=== PATIENT | female | born 1970 | race Caucasian/White ===

== ENCOUNTER 2021-01-17 07:35 | Emergency (ER) | payer SELFPAY ==
[~2021-01-17] VITALS: Ht 149.9 cm; Wt 112.0 kg
[2021-01-17] MEDS ORDERED: LIDOCAINE VISCOUS 2% UD 15 ML UDC ONE (07:51)
[2021-01-17] MEDS ORDERED: PANTOPRAZOLE 40 MG VIAL ONE (07:51)
[2021-01-17] MEDS ORDERED: MAG HYDROX/AL HYDROX/SIMETH 30 ML UDC ONE (07:52)
[2021-01-17] MEDS ORDERED: ONDANSETRON HCL/PF 4 MG/2 ML VIAL ONE (07:52)
[2021-01-17] MEDS ORDERED: MORPHINE SULFATE INJ 4 MG/ML DISP.SYRIN ONE (07:52)
[2021-01-17] MEDS ORDERED: PANTOPRAZOLE 40 MG VIAL IV ONE (08:00)
[2021-01-17] MEDS ORDERED: LIDOCAINE VISCOUS 2% UD 15 ML UDC MM ONE (08:00)
[2021-01-17] MEDS ORDERED: MORPHINE SULFATE INJ 2 MG/ML DISP.SYRIN IV ONE (08:00)
[2021-01-17] MEDS ORDERED: IV NS 0.9% 1,000 ML BAG IV ONE (08:00)
[2021-01-17] MEDS ORDERED: MAG HYDROX/AL HYDROX/SIMETH 30 ML UDC PO ONE (08:00)
[2021-01-17] MEDS ORDERED: ONDANSETRON HCL/PF 4 MG/2 ML VIAL IVP ONE (08:00)
--- NOTE | 2021-01-17 08:06 | NUR ---
urine obtained via straight catheter using sterile technique.
[2021-01-17 08:09] LABS: BASOPHILS % (AUTO) 0.8 % (0.0-2.0); EOSINOPHILS % (AUTO) 3.1 % (0.0-6.0); HEMATOCRIT 32 % (33-45); HEMOGLOBIN 10.1 g/dL (11.5-14.8); LYMPHOCYTES # (AUTO) 1.6 /CMM (0.8-4.8); LYMPHOCYTES % (AUTO) 31.5 % (20.0-44.0); MEAN CORPUSCULAR HGB CONC 31 g/dl (31.0-36.0); MEAN CORPUSCULAR VOLUME 68 fL (82-100); MONOCYTES # (AUTO) 0.5 /CMM (0.1-1.30); MONOCYTES % (AUTO) 9.8 % (2.0-12.0); NEUTROPHILS # (AUTO) 2.7 /CMM (1.8-8.9); NEUTROPHILS % (AUTO) 54.8 % (43.0-81.0); PLATELET COUNT (AUTO) 415 /CMM (150-450); RED BLOOD CELL COUNT(AUTO) 4.71 MIL/uL (4.0-5.2); WHITE BLOOD COUNT (AUTO) 4.9 K/uL (4.3-11.0)
[2021-01-17 08:15] LABS: BILIRUBIN,URINE NEGATIVE (NEGATIVE); COLOR,URINE YELLOW (YELLOW); LEUKOCYTE ESTERASE ,URINE TRACE (NEGATIVE); NITRITE, URINE NEGATIVE (NEGATIVE); PROTEIN,URINE TRACE mg/dl (NEGATIVE); UGLUCOSE NEGATIVE (NEGATIVE); UROBILINOGEN,URINE 0.2 EU/dL (0.2)
--- NOTE | 2021-01-17 08:18 | NUR ---
[id number], from [facility], c/o abd pain x 10 days, +N/V per PT she had Sx 01/08/21 "abd ablation", noticed bright red blood in poop. PT AAOX4, VSS. RR EVEN & UNLABORED. PT SEEN & EVAL'D BY DR. ROYAL. MEDICATED ORDERED, PT CASSY WELL. WILL CONT TO MONITOR. GLASS ENAMEL MIXER AT FOR EVAL.
[2021-01-17 08:26] LABS: CALCIUM, SERUM 9.5 mg/dL (8.5-10.1); CREATININE 0.6 mg/dL (0.6-1.3)
[2021-01-17 08:32] LABS: ALBUMIN 3.4 g/dL (3.4-5.0); BILIRUBIN,DIRECT 0.1 mg/dL (0.0-0.2); BILIRUBIN,TOTAL 0.4 mg/dL (0.2-1.0); TOTAL PROTEIN, SERUM 7.7 g/dL (6.4-8.2)
[2021-01-17] MEDS ORDERED: IV NS 0.9% 250 ML IV ONE (08:40)
[2021-01-17] MEDS ORDERED: IOHEXOL-300 100 ML VIAL IV ONE (08:40)
[2021-01-17 08:47] LABS: BACTERIA,URINE None seen /HPF (None Seen); SQUAMOUS EPITHELIAL CELL,UR Few /HPF (None Seen)
--- NOTE | 2021-01-17 08:47 | NUR ---
RECTAL EXAM DONE BY DR. ROYAL, CHAPERONED BY FEMALE NURSE. STOOL SAMPLE SENT FOR OCCULT.
[2021-01-17 08:58] LABS: OCCULT BLOOD STOOL NEGATIVE (NEGATIVE)
--- NOTE | 2021-01-17 09:04 | NUR ---
PT TO CT VIA [facility]
[2021-01-17] MEDS ORDERED: HYDR25SU33 RC (09:53)
[2021-01-17] MEDS ORDERED: HYDR-4209 PO (09:53)
--- NOTE | 2021-01-17 10:10 | NUR ---
PATIENT DENIES BEING HOMELESS, REFUSED TO SIGN HOMELESS WAIVER, SHE STS SHE HAS A PERMANENT NURSING HOME.
--- NOTE | 2021-01-17 10:16 | NUR ---
Patient discharged to home in stable condition. Written and verbal after care instructions given. Patient verbalizes understanding of instruction.
--- NOTE | 2021-01-17 10:17 | NUR ---
IV removed. Catheter intact and site benign. Pressure and 4x4 applied to site. No bleeding noted. Patient given written and verbal discharge instructions. Patient verbalizes understanding of instructions. Patient is ambulatory with steady gait. Refuses offer of prison placement. Patient given list of available shelters in surrounding area.
[2021-01-17 10:21] VITALS: BP 126/78
== END 2021-01-17 10:21 | disposition home or self-care (01) ==
LOC: ER 07:37
DX: D25.1 Intramural leiomyoma of uterus (principal); N93.9 Abnormal uterine and vaginal bleeding, unspecified; R10.30 Lower abdominal pain, unspecified; D50.9 Iron deficiency anemia, unspecified; K64.4 Residual hemorrhoidal skin tags; K57.30 Diverticulosis of large intestine without perforation or abscess without bleeding; R00.0 Tachycardia, unspecified; I10 Essential (primary) hypertension; E66.01 Morbid (severe) obesity due to excess calories; Z68.42 Body mass index [BMI] 45.0-49.9, adult; Z88.6 Allergy status to analgesic agent
CPT/HCPCS: 36415; 74177; 76856; 80048; 80076; 80307; 80320; 81001; 82272; 83690; 84703; 85025; 85730; 93005; 96361; 96374; 96375; 99285; C9113; J2270; J2405; J7030; J7050; Q9967; G0480

== ENCOUNTER 2021-05-26 01:21 | Emergency (ER) | payer OTHER ==
[~2021-05-26] VITALS: Ht 149.9 cm; Wt 96.6 kg
[~2021-05-26 01:21] MED LIST: HYDR-4209 PO; HYDR25SU33 RC
--- NOTE | 2021-05-26 01:23 | NUR ---
PT AAOX4. PT [id number] C/O ABD PAIN, BLOODY URINE, AND YELLOW VAGINAL DISCHARGE FOR THE PAST 4 MONTHS. PT PALCED IN BED 12 ON MONITOR AND PULSE OX. AWAITING ER MD FOR EVAL AND ORDERS.
[2021-05-26] MEDS ORDERED: HYDROMORPHONE INJ 2 MG/ML DISP.SYRIN IV ONE (02:00)
[2021-05-26] MEDS ORDERED: ONDANSETRON HCL/PF 4 MG/2 ML VIAL IVP ONE (02:00)
[2021-05-26 02:04] LABS: BILIRUBIN,URINE Negative (NEGATIVE); COLOR,URINE YELLOW (YELLOW); LEUKOCYTE ESTERASE ,URINE Negative (NEGATIVE); NITRITE, URINE Negative (NEGATIVE); PROTEIN,URINE Negative (NEGATIVE); UGLUCOSE Negative (NEGATIVE); UROBILINOGEN,URINE 0.2 EU/dL (0.2)
[2021-05-26] MEDS ORDERED: ONDANSETRON HCL/PF 4 MG/2 ML VIAL ONE (02:11)
[2021-05-26] MEDS ORDERED: HYDROMORPHONE 1 MG/1 ML DISP.SYRIN ONE (02:11)
--- NOTE | 2021-05-26 02:18 | NUR ---
BROUGHT TO CT
[2021-05-26 02:22] LABS: CALCIUM, SERUM 9.1 mg/dL (8.5-10.1); CARBON DIOXIDE 24 mmol/L (21-32); CHLORIDE 104 mmol/L (98-107); CREATININE 0.8 mg/dL (0.6-1.3); GLUCOSE 120 mg/dL (74-106); SODIUM SERUM 138 mmol/L (136-145); UREA NITROGEN, BLOOD 13 mg/dL (7-18)
--- NOTE | 2021-05-26 02:25 | NUR ---
BROUGHT BACK FROM CT
[2021-05-26 02:28] LABS: ALANINE AMINOTRANSFERASE 33 U/L (12-78); ALBUMIN 3.3 g/dL (3.4-5.0); ALKALINE PHOSPHATASE 88 U/L (46-116); ASPARTATE AMINOTRANSFERASE 16 U/L (15-37); BILIRUBIN,DIRECT 0.1 mg/dL (0.0-0.2); BILIRUBIN,TOTAL 0.3 mg/dL (0.2-1.0); LIPASE 117 U/L (73-393); TOTAL PROTEIN, SERUM 7.4 g/dL (6.4-8.2)
[2021-05-26 02:30] LABS: BASOPHILS % (AUTO) 0.9 % (0.0-2.0); HEMATOCRIT 30 % (33-45); HEMOGLOBIN 9.2 g/dL (11.5-14.8); LYMPHOCYTES # (AUTO) 1.8 K/uL (0.8-4.8); LYMPHOCYTES % (AUTO) 34.8 % (20.0-44.0); MEAN CORPUSCULAR HGB CONC 31 g/dl (31.0-36.0); MEAN CORPUSCULAR VOLUME 65 fL (82-100); MONOCYTES # (AUTO) 0.5 K/uL (0.1-1.30); MONOCYTES % (AUTO) 10.4 % (2.0-12.0); NEUTROPHILS # (AUTO) 2.7 K/uL (1.8-8.9); NEUTROPHILS % (AUTO) 51.9 % (43.0-81.0); PLATELET COUNT (AUTO) 384 K/uL (150-450); RED BLOOD CELL COUNT(AUTO) 4.56 MIL/uL (4.0-5.2); WHITE BLOOD COUNT (AUTO) 5.1 K/uL (4.3-11.0)
[2021-05-26 03:03] LABS: BACTERIA,URINE None seen /HPF (None Seen); RBC,URINE 0-2 /HPF (0-2); WBC,URINE 0-2 /HPF (0-3)
[2021-05-26 03:04] LABS: SQUAMOUS EPITHELIAL CELL,UR Moderate /HPF (None Seen)
[2021-05-26 03:28] LABS: EOSINOPHILS % (MANUAL) 2 % (0-4); LYMPHOCYTES % (MANUAL) 42 % (16-48); MONOCYTES % (MANUAL) 5 % (0-11.0); NEUTROPHILS % (MANUAL) 51 (42-76)
--- NOTE | 2021-05-26 05:15 | NUR ---
APPAREL CUTTER AT BEDSIDE FOR SECOND TROP DRAW.
[2021-05-26] MEDS ORDERED: NIFE-35 PO (05:50)
[2021-05-26 06:03] VITALS: BP 177/98
--- NOTE | 2021-05-26 06:04 | NUR ---
IV removed. Catheter intact and site benign. Pressure and 4x4 applied to site. No bleeding noted.
--- NOTE | 2021-05-26 06:13 | NUR ---
Patient discharged to home in stable condition. Written and verbal after care instructions given. Patient verbalizes understanding of instruction. Pt ambulated out of ED. VSS.
== END 2021-05-26 06:34 | disposition home or self-care (01) ==
LOC: ER 01:22
DX: R10.9 Unspecified abdominal pain (principal); R00.2 Palpitations; R06.00 Dyspnea, unspecified; K64.9 Unspecified hemorrhoids; I10 Essential (primary) hypertension; Z88.6 Allergy status to analgesic agent; Z79.899 Other long term (current) drug therapy
CPT/HCPCS: 36415; 71045; 74176; 80048; 80076; 81001; 83690; 84484 ×2; 84703; 85007; 85025; 85730; 93005; 96374; 96375; 99285; J1170; J2405

== ENCOUNTER 2021-06-20 18:27 | Emergency (ER) | payer OTHER ==
[~2021-06-20] VITALS: Ht 149.9 cm; Wt 99.8 kg
[~2021-06-20 18:27] MED LIST changes: +NIFE-35 PO
--- NOTE | 2021-06-20 18:45 | NUR ---
Patient bibs lower abdominal pain of 10/10, dyuria "hematuria" on and off x 4 months. no sob noted, no s/o any acute distress. able to to make needs known. Breathing even and unlabored. Stable on RA. Kept Comfortable. will continue with plan of care
--- NOTE | 2021-06-20 18:53 | NUR ---
urine collected and send to lab
[2021-06-20] MEDS ORDERED: ONDANSETRON HCL/PF 4 MG/2 ML VIAL ONE (19:40)
[2021-06-20] MEDS ORDERED: MORPHINE SULFATE INJ 4 MG/ML DISP.SYRIN ONE (19:40)
[2021-06-20 19:57] LABS: BASOPHILS # (AUTO) 0.1 K/uL (0.0-0.2); BASOPHILS % (AUTO) 1.7 % (0.0-2.0); EOSINOPHILS % (AUTO) 1.4 % (0.0-6.0); HEMATOCRIT 30 % (33-45); HEMOGLOBIN 9.3 g/dL (11.5-14.8); LYMPHOCYTES # (AUTO) 1.8 K/uL (0.8-4.8); LYMPHOCYTES % (AUTO) 28.3 % (20.0-44.0); MEAN CORPUSCULAR HGB CONC 31 g/dl (31.0-36.0); MEAN CORPUSCULAR VOLUME 66 fL (82-100); MONOCYTES # (AUTO) 0.6 K/uL (0.1-1.30); MONOCYTES % (AUTO) 8.7 % (2.0-12.0); NEUTROPHILS # (AUTO) 3.9 K/uL (1.8-8.9); NEUTROPHILS % (AUTO) 59.9 % (43.0-81.0); PLATELET COUNT (AUTO) 378 K/uL (150-450); WHITE BLOOD COUNT (AUTO) 6.5 K/uL (4.3-11.0)
[2021-06-20 20:00] LABS: BILIRUBIN,URINE NEGATIVE (NEGATIVE); COLOR,URINE YELLOW (YELLOW); LEUKOCYTE ESTERASE ,URINE TRACE (NEGATIVE); NITRITE, URINE POSITIVE (NEGATIVE); PH,URINE 5.5 (5.0-8.0); PROTEIN,URINE NEGATIVE (NEGATIVE); UGLUCOSE NEGATIVE (NEGATIVE); UROBILINOGEN,URINE 0.2 EU/dL (0.2)
[2021-06-20] MEDS ORDERED: ONDANSETRON HCL/PF - ER 4 MG/2 ML VIAL IV ONE (20:00)
[2021-06-20] MEDS ORDERED: MORPHINE SULFATE INJ 2 MG/ML DISP.SYRIN IV ONE (20:00)
[2021-06-20] MEDS ORDERED: IV NS 0.9% 1,000 ML BAG IV ONE (20:00)
[2021-06-20 20:11] LABS: BACTERIA,URINE 4+ /HPF (None Seen)
[2021-06-20 20:19] LABS: EOSINOPHILS % (MANUAL) 1 % (0-4); LYMPHOCYTES % (MANUAL) 36 % (16-48); MONOCYTES % (MANUAL) 7 % (0-11.0); NEUTROPHILS % (MANUAL) 56 (42-76)
[2021-06-20 20:20] LABS: CALCIUM, SERUM 9.3 mg/dL (8.5-10.1); CREATININE 1.1 mg/dL (0.6-1.3); POTASSIUM 4.4 mmol/L (3.5-5.1)
[2021-06-20 20:27] LABS: ALBUMIN 3.6 g/dL (3.4-5.0); BILIRUBIN,DIRECT 0.1 mg/dL (0.0-0.2); BILIRUBIN,TOTAL 0.5 mg/dL (0.2-1.0); TOTAL PROTEIN, SERUM 8.1 g/dL (6.4-8.2)
[2021-06-20] MEDS ORDERED: IV NS 0.9% 250 ML IV ONE (20:38)
[2021-06-20] MEDS ORDERED: CT SWABBABLE VALVE TRANS SET 1 EA INFUS.SET MC ONE (20:38)
[2021-06-20] MEDS ORDERED: IOHEXOL-300 100 ML VIAL IV ONE (20:38)
--- NOTE | 2021-06-20 20:43 | NUR ---
US AT BEDSIDE
--- NOTE | 2021-06-20 21:20 | NUR ---
BROUGHT TO CT AND BACK
[2021-06-20] MEDS ORDERED: CEFTRIAXONE 1GM BAG (ER ONLY) 50 ML IV ONE (21:27)
[2021-06-20] MEDS ORDERED: CEFTRIAXONE 1GM BAG (ER ONLY) 1 GM/50 ML PIGGYBACK IV ONE (21:30)
[2021-06-20] MEDS ORDERED: HYDROMORPHONE 1 MG/1 ML DISP.SYRIN IV ONE (23:00)
[2021-06-20] MEDS ORDERED: HYDROMORPHONE 1 MG/1 ML DISP.SYRIN ONE (23:13)
[2021-06-20] MEDS ORDERED: CEPH500C2 PO (23:29)
[2021-06-20] MEDS ORDERED: TRAM50TA2 PO (23:29)
--- NOTE | 2021-06-20 23:44 | NUR ---
IV removed. Catheter intact and site benign. Pressure and 4x4 applied to site. No bleeding noted.
--- NOTE | 2021-06-20 23:44 | NUR ---
Patient does not wish to proceed with medical care recommended by PARISA ESQUIVEL. Patient given information related to possible complications, up to and including , which could occur as a result of leaving the hospital at this time. Patient verbalizes understanding of risks involved due to leaving against medical advice. Patient refused to sign AMA form.
[2021-06-20 23:46] VITALS: BP 130/81
== END 2021-06-20 23:46 | disposition left against medical advice (07) ==
LOC: ER 18:27
DX: N39.0 Urinary tract infection, site not specified (principal); R10.84 Generalized abdominal pain; I10 Essential (primary) hypertension; Z88.6 Allergy status to analgesic agent; Z59.0 Homelessness
CPT/HCPCS: 36415; 74177; 76856; 80048; 80076; 81001; 83690; 84702; 84703; 85007; 85025; 85730; 87086; 96361; 96365; 96375; 99285; J0696; J1170; J2270; J2405 ×2; J7030; J7050; Q9967; 87186-TC

== ENCOUNTER 2021-06-22 11:35 | Emergency (ER) | payer OTHER ==
[~2021-06-22] VITALS: Ht 149.9 cm; Wt 86.2 kg
[~2021-06-22 11:35] MED LIST changes: +CEPH500C2 PO; +TRAM50TA2 PO
--- NOTE | 2021-06-22 11:44 | NUR ---
DR. DAWSON AT BEDSIDE
--- NOTE | 2021-06-22 11:45 | NUR ---
PT BIBS ACUTE ABDOMINAL PAIN - LUQ;09/06. ALERT ORIENTED X4. NON LABORED BREATHING.
--- NOTE | 2021-06-22 12:00 | NUR ---
IV @ L WRIST. BLOOD TAKEN AND SENT TO LAB.
[2021-06-22] MEDS ORDERED: ONDANSETRON HCL/PF 4 MG/2 ML VIAL ONE (12:07)
[2021-06-22 12:26] LABS: BILIRUBIN,URINE Negative (NEGATIVE); COLOR,URINE YELLOW (YELLOW); LEUKOCYTE ESTERASE ,URINE Negative (NEGATIVE); NITRITE, URINE Negative (NEGATIVE); PH,URINE 5.5 (5.0-8.0); PROTEIN,URINE Negative (NEGATIVE); UGLUCOSE Negative (NEGATIVE); UROBILINOGEN,URINE 0.2 EU/dL (0.2)
[2021-06-22] MEDS ORDERED: ONDANSETRON HCL/PF 4 MG/2 ML VIAL IVP ONE (12:30)
[2021-06-22] MEDS ORDERED: IV NS 0.9% 1,000 ML BAG IV ONE (12:30)
[2021-06-22 12:32] LABS: HEMOGLOBIN 9.3 g/dL (11.5-14.8); MONOCYTES # (AUTO) 0.6 K/uL (0.1-1.30)
[2021-06-22 12:34] LABS: BASOPHILS # (AUTO) 0.1 K/uL (0.0-0.2); BASOPHILS % (AUTO) 1.2 % (0.0-2.0); HEMATOCRIT 30 % (33-45); LYMPHOCYTES # (AUTO) 1.9 K/uL (0.8-4.8); LYMPHOCYTES % (AUTO) 26.7 % (20.0-44.0); MEAN CORPUSCULAR HGB CONC 31 g/dl (31.0-36.0); MEAN CORPUSCULAR VOLUME 65 fL (82-100); MONOCYTES % (AUTO) 9.1 % (2.0-12.0); NEUTROPHILS # (AUTO) 4.2 K/uL (1.8-8.9); PLATELET COUNT (AUTO) 383 K/uL (150-450)
[2021-06-22 12:40] LABS: CALCIUM, SERUM 9.2 mg/dL (8.5-10.1); CREATININE 0.8 mg/dL (0.6-1.3); POTASSIUM 4.3 mmol/L (3.5-5.1)
[2021-06-22 12:41] LABS: BACTERIA,URINE Few /HPF (None Seen); WBC,URINE 0-2 /HPF (0-3)
[2021-06-22 12:46] LABS: ALBUMIN 3.5 g/dL (3.4-5.0); BILIRUBIN,DIRECT 0.1 mg/dL (0.0-0.2); BILIRUBIN,TOTAL 0.4 mg/dL (0.2-1.0); TOTAL PROTEIN, SERUM 7.7 g/dL (6.4-8.2)
[2021-06-22] MEDS ORDERED: HYDR-3976 GT (13:57)
[2021-06-22 13:59] LABS: LYMPHOCYTES % (MANUAL) 29 % (16-48); MONOCYTES % (MANUAL) 9 % (0-11.0); NEUTROPHILS % (MANUAL) 62 (42-76)
--- NOTE | 2021-06-22 14:15 | NUR ---
Patient discharged to home in stable condition. Written and verbal after care instructions given. Patient verbalizes understanding of instruction.
[2021-06-22 14:16] VITALS: BP 128/82
== END 2021-06-22 14:17 | disposition home or self-care (01) ==
LOC: ER 11:38
DX: R10.2 Pelvic and perineal pain (principal); G89.29 Other chronic pain; R10.9 Unspecified abdominal pain; R07.89 Other chest pain; I10 Essential (primary) hypertension; Z88.6 Allergy status to analgesic agent; Z59.0 Homelessness
CPT/HCPCS: 36415; 74176; 80048; 80076; 81001; 83690; 84703; 85007; 85025; 96360; 99284; J2405; J7030

== ENCOUNTER 2021-06-28 05:32 | Inpatient (IN) | payer OTHER ==
[~2021-06-28] VITALS: Ht 149.9 cm; Wt 96.2 kg
[~2021-06-28 05:32] MED LIST changes: +HYDR-3976 GT
--- NOTE | 2021-06-28 05:36 | NUR ---
pt bibra c/o lower abd pain x3days and blood in urine x1 day. Pt aaxo4 breathing evenly and unlabored. Per pt, her stomach is swollen and her last bowel movement was 2 days ago. Pt states that she has irregular bowel movements, so the bowel movement 2 days ago is normal for her. Pt denies pain when urinating. MD at the bedside for eval. Pt attached to monitor and pox. Pt given blanket and call light within reach
[2021-06-28] MEDS ORDERED: MORPHINE SULFATE INJ 2 MG/ML DISP.SYRIN IV ONE (06:30)
--- NOTE | 2021-06-28 06:30 | NUR ---
covid swab sent to lab
[2021-06-28] MEDS ORDERED: MORPHINE SULFATE INJ 4 MG/ML DISP.SYRIN ONE (06:31)
[2021-06-28 06:39] LABS: BASOPHILS # (AUTO) 0.1 K/uL (0.0-0.2); BILIRUBIN,URINE NEGATIVE (NEGATIVE); COLOR,URINE YELLOW (YELLOW); HEMATOCRIT 29 % (33-45); LEUKOCYTE ESTERASE ,URINE NEGATIVE (NEGATIVE); LYMPHOCYTES # (AUTO) 1.6 K/uL (0.8-4.8); LYMPHOCYTES % (AUTO) 29.2 % (20.0-44.0); MEAN CORPUSCULAR HGB CONC 31 g/dl (31.0-36.0); MEAN CORPUSCULAR VOLUME 65 fL (82-100); MONOCYTES # (AUTO) 0.5 K/uL (0.1-1.30); MONOCYTES % (AUTO) 9.3 % (2.0-12.0); NEUTROPHILS # (AUTO) 3.2 K/uL (1.8-8.9); NEUTROPHILS % (AUTO) 58.5 % (43.0-81.0); NITRITE, URINE NEGATIVE (NEGATIVE); PLATELET COUNT (AUTO) 387 K/uL (150-450); PROTEIN,URINE NEGATIVE (NEGATIVE); UGLUCOSE NEGATIVE (NEGATIVE); UROBILINOGEN,URINE 0.2 EU/dL (0.2); WHITE BLOOD COUNT (AUTO) 5.5 K/uL (4.3-11.0)
--- NOTE | 2021-06-28 06:57 | NUR ---
Loren giles on phone with
--- NOTE | 2021-06-28 07:10 | NUR ---
ASSESSED PT ON BED ASLEEP EASILY AROUSABLE, NOT IN RESPIRATORY DISTRESS, V/S STABLE, KEPT RESTED AND COMFORTABLE. WILL CONTINUE TO MONITOR.
[2021-06-28 07:42] LABS: ALBUMIN 3.3 g/dL (3.4-5.0); BILIRUBIN,DIRECT 0.1 mg/dL (0.0-0.2); BILIRUBIN,TOTAL 0.4 mg/dL (0.2-1.0); CALCIUM, SERUM 9.2 mg/dL (8.5-10.1); CREATININE 0.9 mg/dL (0.6-1.3); POTASSIUM 3.9 mmol/L (3.5-5.1); TOTAL PROTEIN, SERUM 7.4 g/dL (6.4-8.2)
--- NOTE | 2021-06-28 08:31 | NUR ---
room 306-1
--- NOTE | 2021-06-28 09:08 | NUR ---
REPORT GIVEN TO RASHAD GUILLAUME FOR BROCK.
--- NOTE | 2021-06-28 09:50 | NUR ---
MS/RN NOTES ADMITTED A 51 Y/O FEMALE PATIENT VIA GURNEY, ALERT AND ORIENTED X4. PATIENT IN ON ROOM AIR SATURATION 100%. NO COMPLAINED OF PAIN NOTED AT THIS TIME. INITIAL ASSESSMENT WAS DONE AND RECORDED. VITAL SIGN TAKE AND RECORDED. WILL CONTINUE TO MONITOR.
[2021-06-28 10:00] VITALS: BP 155/90
[2021-06-28] MEDS ORDERED: ZOLPIDEM TARTRATE 5 MG TABLET PO PRN (11:00)
[2021-06-28] MEDS ORDERED: ONDANSETRON HCL/PF 4 MG/2 ML VIAL IVP PRN (11:00)
[2021-06-28] MEDS ORDERED: MAG HYDROX/AL HYDROX/SIMETH 30 ML UDC PO PRN (11:00)
[2021-06-28] MEDS ORDERED: MAGNESIUM HYDROXIDE 30 ML UDC PO PRN (11:00)
[2021-06-28] MEDS ORDERED: Z GUARD REMEDY 2 OZ OINT TP PRN (11:00)
[2021-06-28] MEDS ORDERED: HYDROCODONE/APAP 10/325MG TABLET PO PRN (11:00)
[2021-06-28] MEDS ORDERED: ACETAMINOPHEN 325 MG TABLET PO PRN (11:00)
--- NOTE | 2021-06-28 12:24 | NUR ---
MS/RN NOTES DR. HONG ORDER NIFEDIPINE 30 MG P.O. ONCE. NOTED AND CARRIED OUT.
[2021-06-28] MEDS ORDERED: NIFEdipine XL (30MG) 30 MG TAB PO ONE (12:30)
[2021-06-28 16:00] VITALS: BP 151/72
--- NOTE | 2021-06-28 18:08 | NUR ---
MS/RN CLOSING NOTES PATIENT IS ON BED AWAKE ALERT AND ORIENTED X4. PATIENT IS ON ROOM AIR SATURATION 100%. PATIENT IN NO APPARENT RESPIRATORY DISTRESS NOTED. COMPLAINED OF PAIN RATED 5/10 NORCO 5/325MG 1 TAB P.O. WAS GIVEN. IV ACCESS AT LEFT AC # 20 g PATENT AND INTACT. SAFETY PRECAUTIONS WAS IN PLACED. BED IN LOWEST POSITION AND LOCKED. SIDERAILS UP X2. CALL LIGHT WITHIN REACH. WILL ENDORSED TO TRAFFIC COUNTER FOR BROCK.
[2021-06-28] MEDS: HYDROCODONE/APAP 5/325MG TABLET PO PRN (18:25)
--- NOTE | 2021-06-28 19:25 | NUR ---
MS/RN OPENING NOTES PATIENT IN BED AWAKE ALERT AND ORIENTED X4. PATIENT IN NO APPARENT RESPIRATORY DISTRESS. REPORTS PAIN LEVEL AT 2/10 TO ABD. REPORTS NORCO IS HELPING PAIN LEVE. IV ACCESS AT LEFT AC # 20 g FLUSHED, PATENT AND INTACT. SAFETY PRECAUTIONS IN PLACE. BED IN LOWEST POSITION AND LOCKED. SIDERAILS UP X2. CALL LIGHT WITHIN REACH. VERBALIZED UNDERSTANDING TO CALL FOR ASSISTANCE NEEDED. WILL CONT TO MONITOR.
[2021-06-28 20:00] VITALS: BP 142/83
[2021-06-29 06:27] LABS: CALCIUM, SERUM 9.1 mg/dL (8.5-10.1); CREATININE 0.8 mg/dL (0.6-1.3); MAGNESIUM 2.2 mg/dL (1.8-2.4); POTASSIUM 3.8 mmol/L (3.5-5.1)
[2021-06-29 06:29] LABS: BASOPHILS % (AUTO) 0.7 % (0.0-2.0); EOSINOPHILS % (AUTO) 2.2 % (0.0-6.0); HEMATOCRIT 30 % (33-45); HEMOGLOBIN 9.3 g/dL (11.5-14.8); LYMPHOCYTES # (AUTO) 1.5 K/uL (0.8-4.8); LYMPHOCYTES % (AUTO) 31.9 % (20.0-44.0); MEAN CORPUSCULAR HGB CONC 31 g/dl (31.0-36.0); MEAN CORPUSCULAR VOLUME 65 fL (82-100); MONOCYTES # (AUTO) 0.5 K/uL (0.1-1.30); MONOCYTES % (AUTO) 9.6 % (2.0-12.0); NEUTROPHILS # (AUTO) 2.6 K/uL (1.8-8.9); NEUTROPHILS % (AUTO) 55.6 % (43.0-81.0); PLATELET COUNT (AUTO) 394 K/uL (150-450); RED BLOOD CELL COUNT(AUTO) 4.52 MIL/uL (4.0-5.2); WHITE BLOOD COUNT (AUTO) 4.7 K/uL (4.3-11.0)
[2021-06-29 06:41] LABS: THYROID STIMULATING HORMONE 3.137 uIU/mL (0.358-3.74)
[2021-06-29] MEDS: PANTOPRAZOLE 40 MG TABLET.DR PO SCH (07:30)
--- NOTE | 2021-06-29 07:45 | NUR ---
MS RN OPENING NOTES RECEIVED PATIENT IN BED, AWAKE, A/O X4. PATIENT ON ROOM AIR; BREATHING EVEN AND UNLABORED, NO SOB PRESENT. NO COMPLAINS OF ACUTE PAIN. IV ACCESS ON LAC G #20; SL. SAFETY PRECAUTIONS IN PLACE; BED IN LOW POSITION AND LOCKED, RAILS UP X2, CALL LIGHT WITHIN REACH. WILL CONTINUE TO MONITOR PATIENT.
[2021-06-29] MEDS: NIFEdipine XL (30MG) 30 MG TAB PO SCH (08:10)
[2021-06-29 08:24] VITALS: BP 128/86
[2021-06-29 16:42] VITALS: BP 145/80
[2021-06-29] MEDS: HYDROCODONE/APAP 5/325MG TABLET PO PRN (18:33)
--- NOTE | 2021-06-29 18:37 | NUR ---
MS RN NOTES PATIENT COMPLAINING OF ABDOMINAL PAIN 7 OUT OF 10, REQUESTING PAIN MEDICATION. PRN NORCO 5-325 ADMINISTERED. WILL REASSESS.
--- NOTE | 2021-06-29 18:59 | NUR ---
MS RN CLOSING NOTES PATIENT REMAINS IN BED, AWAKE, A/O X4. PATIENT ON ROOM AIR; BREATHING EVEN AND UNLABORED, NO SOB PRESENT. PAIN TREATED WITH PRN PAIN MEDICATION. IV ACCESS ON LAC G #20; SL. ALL NEEDS ATTENDED DURING THE DAY. SAFETY PRECAUTIONS IN PLACE; BED IN LOW POSITION AND LOCKED, RAILS UP X2, CALL LIGHT WITHIN REACH. WILL ENDORSE TO COAL SHOVELER NURSE.
--- NOTE | 2021-06-29 19:25 | NUR ---
MS RN NOTES PATIENT RECEIVED IN BED, AWAKE, A/O X4. PATIENT ON ROOM AIR; BREATHING EVEN AND UNLABORED, NO SOB PRESENT. IV ACCESS ON LAC G #20; SL. ALL NEEDS ATTENDED DURING THE DAY. SAFETY PRECAUTIONS IN PLACE; BED IN LOW POSITION AND LOCKED, RAILS UP X2, CALL LIGHT WITHIN REACH. WILL CONTINUE TO MONITOR..
[2021-06-29 20:00] VITALS: BP 135/74
--- NOTE | 2021-06-30 06:40 | NUR ---
MS RN NOTES PATIENT IN BED, AWAKE, A/O X4. PATIENT ON ROOM AIR; BREATHING EVEN AND UNLABORED, NO SOB PRESENT. IV ACCESS ON LAC G #20; SL. ALL NEEDS ATTENDED DURING THE SHIFT NO PAIN OR DISCOMFORT VISIBLE OR REPORTED AT THIS TIME.SAFETY PRECAUTIONS IN PLACE; BED IN LOW POSITION AND LOCKED, RAILS UP X2, CALL LIGHT WITHIN REACH. WILL ENDORSE CARE TO DAY SHIFT NURSE.
[2021-06-30] MEDS: PANTOPRAZOLE 40 MG TABLET.DR PO SCH ×2 (07:30→10:04)
--- NOTE | 2021-06-30 07:30 | NUR ---
RN MS NOTES PT IN BED, AWAKE, ALERT AND ORIENTED, NO COMPLAINT OF PAIN AT THIS TIME, BREATHING PATTERN NORMAL, CALL LIGHT WITHIN REACH, PT AWAITING GI CONSULT, VERBALIZED UNDERSTANDING, CALL LIGHT WITHIN REACH.
[2021-06-30 08:00] VITALS: BP 136/73
[2021-06-30 10:04] VITALS: BP 136/73
[2021-06-30] MEDS: NIFEdipine XL (30MG) 30 MG TAB PO SCH (10:04)
--- NOTE | 2021-06-30 11:03 | NUR ---
RN MS NOTES PT SEEN BY DR. BRANDT AND DR. GAMEZ, PLAN OF CARE DISCUSSED WITH PT. VERBALIZED UNDERSTANDING.
--- NOTE | 2021-06-30 12:22 | NUR ---
RN MS NOTES PT AWAKE, ALERT AND ORIENTED, WALKING INSIDE HER ROOM WITH STEADY GAIT, NO COMPLAINT OF PAIN, NO SOB, ON ROOM AIR, DISCHARGE ORDER GIVEN BY DR. GAMEZ, DISCHARGE AND MEDICATION INSTRUCTIONS PROVIDED TO PT, VERBALIZED UNDERSTANDING, BELONGINGS ACCOUNTED FOR, PT'S TRANSPORTATION ARRANGED BY KAYDEN PACHECO, ASSISTED PT TO HOSPITAL LOBBY, LEFT VIA PRIVATE CAR IN STABLE CONDITION.
== END 2021-06-30 12:22 | disposition home or self-care (01) | DRG 532 ==
LOC: ER 05:33 → MED 09:13
PROVIDERS: ATTEND Hospitalist
DX: D25.9 Leiomyoma of uterus, unspecified (principal); Z68.41 Body mass index [BMI] 40.0-44.9, adult; D50.9 Iron deficiency anemia, unspecified; G89.29 Other chronic pain; I10 Essential (primary) hypertension; Z20.822 Contact with and (suspected) exposure to COVID-19; E66.9 Obesity, unspecified; Z86.711 Personal history of pulmonary embolism; Z71.3 Dietary counseling and surveillance; R73.03 Prediabetes
CPT/HCPCS: 36415; 76856-TC; 80048-TC; 80061-TC; 80076-TC; 83690-TC; 83735-TC; 84100-TC; 84443-TC; 85025-TC; 87081-TC; 87086-TC; C9803; G0378; J2270

== ENCOUNTER 2021-07-04 23:25 | Emergency (ER) | payer OTHER ==
[~2021-07-04] VITALS: Ht 149.9 cm; Wt 96.2 kg
[2021-07-04] MEDS ORDERED: HYDROMORPHONE 1 MG/1 ML DISP.SYRIN ONE (23:36)
--- NOTE | 2021-07-04 23:55 | NUR ---
CIRCUIT BREAKER SUPERVISOR AT BEDSIDE FOR BLOOD WORK.
[2021-07-05 00:03] LABS: BASOPHILS % (AUTO) 0.7 % (0.0-2.0); EOSINOPHILS % (AUTO) 1.8 % (0.0-6.0); HEMATOCRIT 29 % (33-45); HEMOGLOBIN 8.7 g/dL (11.5-14.8); LYMPHOCYTES # (AUTO) 1.9 K/uL (0.8-4.8); LYMPHOCYTES % (AUTO) 28.3 % (20.0-44.0); MEAN CORPUSCULAR HGB CONC 30 g/dl (31.0-36.0); MEAN CORPUSCULAR VOLUME 65 fL (82-100); MONOCYTES # (AUTO) 0.6 K/uL (0.1-1.30); MONOCYTES % (AUTO) 8.8 % (2.0-12.0); NEUTROPHILS # (AUTO) 4.1 K/uL (1.8-8.9); NEUTROPHILS % (AUTO) 60.4 % (43.0-81.0); PLATELET COUNT (AUTO) 413 K/uL (150-450); RED BLOOD CELL COUNT(AUTO) 4.39 MIL/uL (4.0-5.2); WHITE BLOOD COUNT (AUTO) 6.7 K/uL (4.3-11.0)
[2021-07-05 00:12] LABS: CALCIUM, SERUM 9.2 mg/dL (8.5-10.1); CREATININE 0.8 mg/dL (0.6-1.3); POTASSIUM 3.7 mmol/L (3.5-5.1)
[2021-07-05 00:17] LABS: ALBUMIN 3.4 g/dL (3.4-5.0); BILIRUBIN,DIRECT 0.1 mg/dL (0.0-0.2); BILIRUBIN,TOTAL 0.3 mg/dL (0.2-1.0); TOTAL PROTEIN, SERUM 7.7 g/dL (6.4-8.2)
[2021-07-05] MEDS ORDERED: HYDROMORPHONE 1 MG/1 ML DISP.SYRIN ONE (00:59)
[2021-07-05] MEDS ORDERED: HYDROMORPHONE 1 MG/1 ML DISP.SYRIN IV ONE ×2 (01:00)
--- NOTE | 2021-07-05 01:02 | NUR ---
PT REFUSED TO TAKE A LYFT HOME. STATED SHE WOULD RATHER WAIT FOR THE BUS.
--- NOTE | 2021-07-05 01:10 | NUR ---
CALLED CALL THE CAR FOR A LYFT FOR THE PT. 7 MINUTES ARIAN MENDOZA
[2021-07-05] MEDS ORDERED: HYDR-3976 GT (01:17)
[2021-07-05 01:23] VITALS: BP 149/83
--- NOTE | 2021-07-05 01:23 | NUR ---
Patient discharged to home in stable condition. Written and verbal after care instructions given. Patient verbalizes understanding of instruction and RX. Pt ambulated out of ED. VSS.
--- NOTE | 2021-07-05 01:23 | NUR ---
IV removed. Catheter intact and site benign. Pressure and 4x4 applied to site. No bleeding noted.
[2021-07-05 01:54] LABS: NEUTROPHILS % (MANUAL) 58 (42-76)
[2021-07-05 01:55] LABS: BASOPHILS % (MANUAL) 0 % (0.0-2.0); EOSINOPHILS % (MANUAL) 0 % (0-4); LYMPHOCYTES % (MANUAL) 31 % (16-48); MONOCYTES % (MANUAL) 11 % (0-11.0)
== END 2021-07-05 01:36 | disposition home or self-care (01) ==
LOC: ER 23:28
DX: R10.31 Right lower quadrant pain (principal); R10.32 Left lower quadrant pain; D25.9 Leiomyoma of uterus, unspecified; R19.00 Intra-abdominal and pelvic swelling, mass and lump, unspecified site; I10 Essential (primary) hypertension; Z88.6 Allergy status to analgesic agent; Z91.018 Allergy to other foods; Z59.0 Homelessness
CPT/HCPCS: 36415; 80048; 80076; 83690; 85007; 85025; 96374; 96376; 99284; J1170 ×2

== ENCOUNTER 2021-07-13 18:46 | Emergency (ER) | payer OTHER ==
[~2021-07-13] VITALS: Ht 149.9 cm; Wt 95.7 kg
[~2021-07-13 18:46] MED LIST changes: -CEPH500C2 PO; -HYDR-4209 PO; -HYDR25SU33 RC; -TRAM50TA2 PO
[2021-07-13] MEDS ORDERED: IV NS 0.9% 1,000 ML BAG IV ONE (19:00)
[2021-07-13] MEDS ORDERED: ONDANSETRON HCL/PF 4 MG/2 ML VIAL IVP ONE (19:00)
[2021-07-13] MEDS ORDERED: HYDROMORPHONE INJ 2 MG/ML DISP.SYRIN IV ONE (19:00)
--- NOTE | 2021-07-13 19:05 | NUR ---
Pt bibra c/o abd pain. Pt aaox4 brreathing evenly and unlabaored. Pt attached to monitor and pox. Pt tearful and stating "you cant do anything for me. i already take my pain meds and i just fall asleep". Md at bedside. Will continue to monitor.
[2021-07-13] MEDS ORDERED: ONDANSETRON HCL/PF 4 MG/2 ML VIAL ONE (19:09)
[2021-07-13] MEDS ORDERED: HYDROMORPHONE 1 MG/1 ML DISP.SYRIN ONE (19:10)
--- NOTE | 2021-07-13 19:15 | NUR ---
Patient does not wish to proceed with medical care recommended by Dr. Flores. Patient given information related to possible complications, up to and including , which could occur as a result of leaving the hospital at this time. Patient verbalizes understanding of risks involved due to leaving against medical advice. Patient has signed AMA form.
[2021-07-13 19:31] VITALS: BP 160/81
== END 2021-07-13 19:15 | disposition left against medical advice (07) ==
LOC: ER 18:48
DX: R10.2 Pelvic and perineal pain (principal); D25.9 Leiomyoma of uterus, unspecified; I10 Essential (primary) hypertension; Z88.6 Allergy status to analgesic agent; Z91.018 Allergy to other foods; Z59.0 Homelessness; Z79.899 Other long term (current) drug therapy
CPT/HCPCS: J1170; J2405; J7030

== ENCOUNTER 2021-07-23 16:38 | Emergency (ER) | payer OTHER ==
[~2021-07-23] VITALS: Ht 149.9 cm; Wt 93.9 kg
[2021-07-23] MEDS ORDERED: MORPHINE SULFATE INJ 4 MG/ML DISP.SYRIN ONE (17:16)
[2021-07-23] MEDS ORDERED: ONDANSETRON HCL/PF 4 MG/2 ML VIAL ONE (17:16)
--- NOTE | 2021-07-23 17:25 | NUR ---
PELVIC PAIN W/ NOTED "DARK [place]" VAGINAL DISCHARGE X 2 DAYS. PT AAOX4, VSS. RR EVEN & UNLABORED. DENIES CP, SOB, DIZZINESS AT THIS TIME. PT SEEN & EVAL'D BY PARISA KASPER. MEDICATED ORDERED, PT CASSY WELL. WILL CONT TO MONITOR.
[2021-07-23 17:30] LABS: BILIRUBIN,URINE NEGATIVE (NEGATIVE); COLOR,URINE YELLOW (YELLOW); LEUKOCYTE ESTERASE ,URINE MODERATE (NEGATIVE); NITRITE, URINE NEGATIVE (NEGATIVE); PROTEIN,URINE 30 mg/dl (NEGATIVE); UGLUCOSE NEGATIVE (NEGATIVE); UROBILINOGEN,URINE 0.2 EU/dL (0.2)
[2021-07-23] MEDS ORDERED: MORPHINE SULFATE INJ 2 MG/ML DISP.SYRIN IV ONE (17:30)
[2021-07-23] MEDS ORDERED: ONDANSETRON HCL/PF 4 MG/2 ML VIAL IVP ONE (17:30)
[2021-07-23 17:41] LABS: BACTERIA,URINE 3+ /HPF (None Seen); RBC,URINE 51-80 /HPF (0-2); WBC,URINE 21-50 /HPF (0-3)
[2021-07-23 17:43] LABS: BASOPHILS # (AUTO) 0.1 K/uL (0.0-0.2); BASOPHILS % (AUTO) 1.9 % (0.0-2.0); HEMATOCRIT 24 % (33-45); HEMOGLOBIN 7.6 g/dL (11.5-14.8); LYMPHOCYTES # (AUTO) 1.6 K/uL (0.8-4.8); LYMPHOCYTES % (AUTO) 20.5 % (20.0-44.0); MEAN CORPUSCULAR HGB CONC 31 g/dl (31.0-36.0); MEAN CORPUSCULAR VOLUME 65 fL (82-100); MONOCYTES # (AUTO) 0.6 K/uL (0.1-1.30); MONOCYTES % (AUTO) 7.9 % (2.0-12.0); NEUTROPHILS # (AUTO) 5.3 K/uL (1.8-8.9); NEUTROPHILS % (AUTO) 67.7 % (43.0-81.0); PLATELET COUNT (AUTO) 398 K/uL (150-450); RED BLOOD CELL COUNT(AUTO) 3.73 MIL/uL (4.0-5.2); WHITE BLOOD COUNT (AUTO) 7.9 K/uL (4.3-11.0)
[2021-07-23 17:54] LABS: CALCIUM, SERUM 9.2 mg/dL (8.5-10.1); CREATININE 0.9 mg/dL (0.6-1.3); POTASSIUM 3.5 mmol/L (3.5-5.1)
[2021-07-23 18:00] LABS: ALBUMIN 3.5 g/dL (3.4-5.0); BILIRUBIN,DIRECT 0.1 mg/dL (0.0-0.2); BILIRUBIN,TOTAL 0.6 mg/dL (0.2-1.0); TOTAL PROTEIN, SERUM 7.7 g/dL (6.4-8.2)
[2021-07-23 18:11] LABS: EOSINOPHILS % (MANUAL) 1 % (0-4); LYMPHOCYTES % (MANUAL) 23 % (16-48); MONOCYTES % (MANUAL) 11 % (0-11.0); NEUTROPHILS % (MANUAL) 65 (42-76)
[2021-07-23] MEDS ORDERED: IV NS 0.9% 250 ML IV ONE (18:47)
[2021-07-23] MEDS ORDERED: IOHEXOL-300 100 ML VIAL IV ONE (18:47)
[2021-07-23] MEDS ORDERED: CT SWABBABLE VALVE TRANS SET 1 EA INFUS.SET MC ONE (18:47)
--- NOTE | 2021-07-23 20:11 | NUR ---
[facility] CALLED PER Marina SALMERON.
[2021-07-23] MEDS ORDERED: CEPH500C2 PO (20:24)
[2021-07-23] MEDS ORDERED: ACET-2605 PO (20:24)
[2021-07-23] MEDS ORDERED: CEPHALEXIN MONOHYDRATE 500 MG CAPSULE PO ONE ×3 (20:28→20:34)
[2021-07-23 20:49] VITALS: BP 140/90
--- NOTE | 2021-07-23 20:49 | NUR ---
Patient discharged to home in stable condition. Written and verbal after care instructions given. Patient verbalizes understanding of instruction. RX given
== END 2021-07-23 20:50 | disposition home or self-care (01) ==
LOC: ER 16:44
DX: D25.9 Leiomyoma of uterus, unspecified (principal); N93.9 Abnormal uterine and vaginal bleeding, unspecified; N39.0 Urinary tract infection, site not specified; D50.9 Iron deficiency anemia, unspecified; I10 Essential (primary) hypertension; Z88.6 Allergy status to analgesic agent; Z91.018 Allergy to other foods; Z59.0 Homelessness; Z79.899 Other long term (current) drug therapy
CPT/HCPCS: 36415; 74177; 76856; 80048; 80076; 81001; 84703; 85007; 85025; 87086; 96374; 96375; 99285; J2270; J2405; J7050; Q9967

== ENCOUNTER 2021-08-10 14:09 | Emergency (ER) | payer OTHER ==
[~2021-08-10] VITALS: Ht 170.2 cm; Wt 97.5 kg
[~2021-08-10 14:09] MED LIST changes: +ACET-2605 PO; +CEPH500C2 PO
--- NOTE | 2021-08-10 14:09 | NUR ---
PT BIBRA 60 C/O VAGINAL BLEED AND ABDOMINAL PAIN. PT IS AAOX4, NOT IN RESPIRATORY DISTRESS, HOOKED TO YARROW GATHERER, KEPT RESTED AND COMFORTABLE. WILL CONTINUE TO MONITOR.
--- NOTE | 2021-08-10 14:34 | NUR ---
SEEN AND EXAMINED BY .
--- NOTE | 2021-08-10 14:50 | NUR ---
IV LINE ESTABLISHED BLOOD DRAWN AND SENT TO LAB.
[2021-08-10 14:57] LABS: BASOPHILS # (AUTO) 0.1 K/uL (0.0-0.2); EOSINOPHILS % (AUTO) 0.6 % (0.0-6.0); HEMATOCRIT 33 % (33-45); HEMOGLOBIN 10.4 g/dL (11.5-14.8); LYMPHOCYTES % (AUTO) 18.8 % (20.0-44.0); MEAN CORPUSCULAR HGB CONC 31 g/dl (31.0-36.0); MEAN CORPUSCULAR VOLUME 70 fL (82-100); MONOCYTES # (AUTO) 0.8 K/uL (0.1-1.30); MONOCYTES % (AUTO) 14.9 % (2.0-12.0); NEUTROPHILS # (AUTO) 3.4 K/uL (1.8-8.9); NEUTROPHILS % (AUTO) 64.7 % (43.0-81.0); PLATELET COUNT (AUTO) 430 K/uL (150-450); RED BLOOD CELL COUNT(AUTO) 4.74 MIL/uL (4.0-5.2); WHITE BLOOD COUNT (AUTO) 5.3 K/uL (4.3-11.0)
[2021-08-10 15:02] LABS: CALCIUM, SERUM 9.5 mg/dL (8.5-10.1); CREATININE 0.7 mg/dL (0.6-1.3); POTASSIUM 3.5 mmol/L (3.5-5.1)
[2021-08-10 15:07] LABS: ALBUMIN 3.6 g/dL (3.4-5.0); BILIRUBIN,DIRECT 0.1 mg/dL (0.0-0.2); BILIRUBIN,TOTAL 0.5 mg/dL (0.2-1.0); TOTAL PROTEIN, SERUM 8.2 g/dL (6.4-8.2)
[2021-08-10] MEDS ORDERED: ONDANSETRON HCL/PF 4 MG/2 ML VIAL ONE (15:13)
[2021-08-10] MEDS ORDERED: MORPHINE SULFATE INJ 2 MG/ML DISP.SYRIN ONE (15:13)
[2021-08-10] MEDS ORDERED: MORPHINE SULFATE INJ 2 MG/ML DISP.SYRIN IV ONE (15:30)
[2021-08-10] MEDS ORDERED: ONDANSETRON HCL/PF - ER 4 MG/2 ML VIAL IV ONE (15:30)
[2021-08-10] MEDS ORDERED: IV NS 0.9% 1,000 ML IV ONE (15:30)
[2021-08-10 15:54] LABS: EOSINOPHILS % (MANUAL) 2 % (0-4); LYMPHOCYTES % (MANUAL) 24 % (16-48); MONOCYTES % (MANUAL) 8 % (0-11.0); NEUTROPHILS % (MANUAL) 66 (42-76)
[2021-08-10 16:19] LABS: BILIRUBIN,URINE Negative (NEGATIVE); COLOR,URINE RED (YELLOW); LEUKOCYTE ESTERASE ,URINE Trace (NEGATIVE); NITRITE, URINE Negative (NEGATIVE); PH,URINE 8.5 (5.0-8.0); PROTEIN,URINE 100 mg/dl (NEGATIVE); UGLUCOSE Negative (NEGATIVE); UROBILINOGEN,URINE 0.2 EU/dL (0.2)
[2021-08-10 16:34] LABS: BACTERIA,URINE None seen /HPF (None Seen); RBC,URINE TOO NUMEROUS TO COUN /HPF (0-2); SQUAMOUS EPITHELIAL CELL,UR Few /HPF (None Seen)
[2021-08-10] MEDS ORDERED: HYDR-4275 PO (17:37)
--- NOTE | 2021-08-10 18:29 | NUR ---
CALLED [id number] [phone] [facility] WILL TRANSPORT ETA [phone]
--- NOTE | 2021-08-10 18:53 | NUR ---
IV removed. Catheter intact and site benign. Pressure and 4x4 applied to site. No bleeding noted.
[2021-08-10 20:53] VITALS: BP 133/71
--- NOTE | 2021-08-10 20:53 | NUR ---
REPORT GIVEN TO EMT, PT WILL BE TRANSFERED BACK TO HER HOUSE.
== END 2021-08-10 21:16 | disposition home or self-care (01) ==
LOC: ER 14:14
DX: N93.8 Other specified abnormal uterine and vaginal bleeding (principal); D25.9 Leiomyoma of uterus, unspecified; D64.9 Anemia, unspecified; E86.0 Dehydration; I10 Essential (primary) hypertension; Z86.711 Personal history of pulmonary embolism; Z88.6 Allergy status to analgesic agent; Z91.018 Allergy to other foods; Z59.0 Homelessness; Z79.899 Other long term (current) drug therapy
CPT/HCPCS: 36415; 80048; 80076; 81001; 83690; 85007; 85025; 86850; 96361; 96374; 96375; 99284; J2270; J2405; J7030

== ENCOUNTER 2021-11-15 14:31 | Emergency (ER) | payer OTHER ==
[~2021-11-15] VITALS: Ht 149.9 cm; Wt 83.9 kg
[~2021-11-15 14:31] MED LIST changes: +HYDR-4275 PO
[2021-11-15 15:11] VITALS: BP 185/89
--- NOTE | 2021-11-15 16:20 | NUR ---
CALLED TO ROOM IN,NO ANSWER
--- NOTE | 2021-11-15 16:54 | NUR ---
CALLED TO ROOM IN,NO ANSWER
== END 2021-11-15 16:55 | disposition left against medical advice (07) ==
LOC: ER 14:36
DX: J02.9 Acute pharyngitis, unspecified (principal); Z79.899 Other long term (current) drug therapy; Z88.6 Allergy status to analgesic agent; Z91.018 Allergy to other foods